=== PATIENT | female | born 1955 | race Caucasian/White ===

== ENCOUNTER → 2022-11-13 | Day surgery (SDC) | payer MEDICARE ==
[~2022-11-13] VITALS: Ht 154.9 cm; Wt 95.3 kg
[2022-11-13 10:00] VITALS: BP 154/85
[2022-11-13 10:49] VITALS: BP 116/66
[2022-11-13 11:04] VITALS: BP 101/62
[2022-11-13 11:19] VITALS: BP 117/72
== END | disposition home or self-care (01) ==
LOC: SDC 11-08 11:00
PROVIDERS: ATTEND Specialist
DX: H65.493 Other chronic nonsuppurative otitis media, bilateral (principal); Z88.1 Allergy status to other antibiotic agents; Z88.8 Allergy status to other drugs, medicaments and biological substances